=== PATIENT | female | born 1960 | race Caucasian/White ===

== ENCOUNTER 2017-05-12 12:44 | Emergency (ER) | payer MEDICAID ==
[~2017-05-12] VITALS: Ht 165.1 cm; Wt 78.0 kg
[2017-05-12 13:05] VITALS: BP 125/83
--- NOTE | 2017-05-12 13:50 | NUR ---
Patient ambulated to bed 4. RN evaluating patient at bedside.
--- NOTE | 2017-05-12 13:55 | NUR ---
57F BIB FAMILY C/O LEFT EYE SWELLING/PAIN X YESTERDAY. PT STATES NO TRAUMA OR INJURY TO EYE AT THIS TIME. PAIN 9/10 BILATERAL EYE ITCHY/BURNING NON-RADIATING. AAOX4, PERRLA, BREATHING EVEN AND UNLABORED. ERMD NOTIFIED OF PATIENT STATUS.
--- NOTE | 2017-05-12 14:00 | NUR ---
Dr. Echeverria evaluating patient at bedside.
--- NOTE | 2017-05-12 14:21 | NUR ---
Patient discharged with v/s stable. Written and verbal after care instructions given and explained. Patient alert, oriented and verbalized understanding of instructions. Ambulatory with steady gait. All questions addressed prior to discharge. ID band removed. Patient advised to follow up with PMD. Rx of AUGMENTIN 500MG AND ATARAX 25MG TABLET given. Patient educated on indication of medication including possible reaction and side effects. Opportunity to ask questions provided and answered.
[2017-05-12 14:22] VITALS: BP 127/81
== END 2017-05-12 14:21 | disposition home or self-care (01) ==
LOC: MED 12:44
DX: L03.213 Periorbital cellulitis (principal); R03.0 Elevated blood-pressure reading, without diagnosis of hypertension; Z91.013 Allergy to seafood
CPT/HCPCS: 99283

== ENCOUNTER 2017-11-24 11:12 | Emergency (ER) | payer MEDICAID ==
[~2017-11-24] VITALS: Ht 172.7 cm; Wt 81.6 kg
[2017-11-24 11:16] VITALS: BP 154/94
--- NOTE | 2017-11-24 11:29 | NUR ---
57 YO F BIB FAMILY W/ C/O DIZZINESS/HAND CRAMPING X TODAY. NEURO ASSESSMENT APPROPRIATE, NO S/S OF DEFICIT AT THIS TIME. HEART RATE EVEN, PULSE 85, O2 SAT 99%, RESPIRATIONS 23. PT HOOKED UP TO MONITOR UPON ARRIVAL. PT A&O X 4. GCS 15. CMS INTACT. RESPIRATIONS EVEN AND UNLABORED, BUT TACHYPNIC. LUNG SOUNDS BILATERALLY CLEAR. ABD SOFT, NON-TENDER AT THIS TIME. DENIES N/V/D. PT SPEAKS CLEARLY AT THIS TIME. SON AND AT BEDSIDE. ER MD PRIETO NOTIFIED OF PT STATUS. PT NEEDS MET. SAFETY PRECAUTIONS IN PLACE. WILL CONTINUE TO MONITOR.
[2017-11-24] MEDS ORDERED: MECLIZINE 25 MG TAB PO ONE (11:35)
--- NOTE | 2017-11-24 11:50 | NUR ---
Patient reports she "feeling better and less dizzy". Pt is aox4. RR are even and unlabored. No acute distress.
[2017-11-24 12:17] VITALS: BP 134/86
--- NOTE | 2017-11-24 12:17 | NUR ---
Patient discharged with v/s stable. Written and verbal after care instructions given and explained. Patient alert, oriented and verbalized understanding of instructions. Ambulatory with steady gait. All questions addressed prior to discharge. ID band removed. Patient advised to follow up with PMD. Rx of Zofran and Meclizine given. Patient educated on indication of medication including possible reaction and side effects. Opportunity to ask questions provided and answered.
== END 2017-11-24 12:17 | disposition home or self-care (01) ==
LOC: MED 11:12
DX: R42 Dizziness and giddiness (principal); R41.9 Unspecified symptoms and signs involving cognitive functions and awareness; F17.210 Nicotine dependence, cigarettes, uncomplicated; Z91.013 Allergy to seafood
CPT/HCPCS: 99283; J8597

== ENCOUNTER 2018-07-14 13:11 | Emergency (ER) | payer MEDICAID, OTHER ==
[~2018-07-14] VITALS: Ht 165.1 cm; Wt 74.4 kg
--- NOTE | 2018-07-14 13:23 | NUR ---
PT AMBULATED TO ER BED 04
[2018-07-14 13:26] VITALS: BP 136/78
--- NOTE | 2018-07-14 13:30 | NUR ---
HANDED URINE CUP TO PT FOR SAMPLE
--- NOTE | 2018-07-14 13:56 | NUR ---
58/F [place] SPEAKING , SON INTERPRETING. PT C/O LOWER ABDOMINAL PAIN WITH DYSURIA AND FATIGUE X 4 DAYS. HAS BEEN SEEN BY PMD BUT PT STATES ISSUES HAVE NOT RESOLVED AND LEFT EAR PAIN X 2 WEEKS. . HX--THYROID, HTN, GOUT, BLADDER, GERD. MED: SYNTHROID, NORVASC, INDOMETHACIN, PRAVASTATIN, PRILOSEC, BRINTELLIX, VITAMIN D2, BACTRIM. PATIENT STATES PAIN OF 8/10 AT THIS TIME; VSS; PATIENT POSITIONED FOR COMFORT; HOB ELEVATED; BEDRAILS UP X2; BED DOWN. ER MD MADE AWARE OF PT STATUS.
--- NOTE | 2018-07-14 13:56 | NUR ---
Note undone in EDM - 07/14/18 at 1403 by [email or web address] 58/F LAO SPEAKING , SON INTERPRETING. PT C/O LOWER ABDOMINAL PAIN WITH DYSURIA AND FATIGUE X "WEEKS". HAS BEEN SEEN BY PMD BUT PT STATES ISSUES HAVE NOT RESOLVED AND LEFT EAR PAIN. HX--THYROID, HTN, GOUT, BLADDER, GERD. MED: SYNTHROID, NORVASC, INDOMETHACIN, PRAVASTATIN, PRILOSEC, BRINTELLIX, VITAMIN D2, BACTRIM. PATIENT STATES PAIN OF 8/10 AT THIS TIME; VSS; PATIENT POSITIONED FOR COMFORT; HOB ELEVATED; BEDRAILS UP X2; BED DOWN. ER MD MADE AWARE OF PT STATUS.
[2018-07-14] MEDS ORDERED: NACL 0.9% 1,000 ML IV SCH (14:35)
[2018-07-14] MEDS ORDERED: KETOROLAC 30 MG/ML VIAL IVP ONE (14:35)
[2018-07-14 15:04] LABS: HEMATOCRIT 46.9 % (36-48); HEMOGLOBIN 15.8 g/dL (12.0-16.0); LYMPHOCYTES # (AUTO) 3.5 K/uL (2.5-16.5); LYMPHOCYTES % (AUTO) 33.4 % (20.5-51.1); MEAN CORPUSCULAR HEMOGLOBIN 30 pg (27-31); MEAN CORPUSCULAR HGB CONC 34 g/dL (33-37); MEAN CORPUSCULAR VOLUME 90.2 fL (80-94); MONOCYTES # (AUTO) 3.5 K/uL (0.8-1.0); MONOCYTES % (AUTO) 33.3 % (1.7-9.3); NEUTROPHILS # (AUTO) 3.5 K/uL (1.8-7.7); NEUTROPHILS % (AUTO) 33.3 % (42.2-75.2); PLATELET COUNT (AUTO) 279 K/uL (140-450); RED CELL DISTRIBUTION WIDTH 13.3 % (11.6-13.7); WHITE BLOOD COUNT (AUTO) 10.4 K/uL (4.8-10.8)
[2018-07-14 15:06] LABS: APPEARANCE,URINE CLEAR (CLEAR); BILIRUBIN,URINE NEGATIVE (NEGATIVE); BLOOD, URINE TRACE-I (NEGATIVE); COLOR,URINE YELLOW (YELLOW); LEUKOCYTE ESTERASE ,URINE NEGATIVE (NEGATIVE); NITRITE, URINE NEGATIVE (NEGATIVE); PH,URINE 6.5 (5.0-9.0); UGLUCOSE NEGATIVE (NEGATIVE)
[2018-07-14 15:07] LABS: RBC,URINE 0-5 (RARE) /HPF (0-5); WBC,URINE NONE SEEN /HPF (0-5)
--- NOTE | 2018-07-14 15:17 | NUR ---
PT TAKEN TO CT VIA [facility], ACCOMPANIED BY VESSEL ENGINEER.
[2018-07-14 15:23] LABS: ALBUMIN 3.8 g/dL (3.4-5.0); ANION GAP 12.5 (8-16); CARBON DIOXIDE 27.4 mmol/L (21-32); CREATININE 0.7 mg/dL (0.6-1.3); POTASSIUM 3.9 mmol/L (3.5-5.1); TOTAL BILIRUBIN 0.3 mg/dL (0.0-1.0)
--- NOTE | 2018-07-14 15:28 | NUR ---
PT RETURNED FROM CT VIA [facility], ACCOMPANIED BY BEAM MACHINE OPERATOR.
[2018-07-14 16:32] VITALS: BP 111/67
--- NOTE | 2018-07-14 16:32 | NUR ---
Patient discharged with v/s stable. Written and verbal after care instructions given and explained. Patient alert, oriented and verbalized understanding of instructions. Ambulatory with steady gait. All questions addressed prior to discharge. ID band removed. Patient advised to follow up with PMD. Rx of Jeddo and Motrin given. Patient educated on indication of medication including possible reaction and side effects. Opportunity to ask questions provided and answered.
== END 2018-07-14 16:32 | disposition home or self-care (01) ==
LOC: MED 13:11
DX: R10.30 Lower abdominal pain, unspecified (principal); H92.02 Otalgia, left ear; K21.9 Gastro-esophageal reflux disease without esophagitis; I10 Essential (primary) hypertension; E03.9 Hypothyroidism, unspecified; F17.200 Nicotine dependence, unspecified, uncomplicated
CPT/HCPCS: 36415; 74176; 80053; 81001; 81025; 83690; 85025; 96374; 99284; J1885; J7030

== ENCOUNTER 2018-12-05 15:22 | Emergency (ER) | payer MEDICAID, OTHER ==
[~2018-12-05] VITALS: Ht 165.1 cm; Wt 74.8 kg
[2018-12-05 15:31] VITALS: BP 123/72
--- NOTE | 2018-12-05 16:08 | NUR ---
C/O SYNCOPE. PER DAUGHTER PT HAS BEEN DIZZY X1 MONTH AND HAS PAIN IN LT LEG AND LOWER BACK X 1MONTH. DENIES N/V/D; SKIN IS PINK/WARM/DRY; AAOX4 ,LUNGS CLEAR BL; HR EVEN AND REGULAR; PT DENIES ANY FEVER, CP, SOB, OR COUGH AT THIS TIME; PATIENT STATES PAIN OF 9/10 AT THIS TIME; VSS; PATIENT POSITIONED FOR COMFORT; HOB ELEVATED; BEDRAILS UP X2; BED DOWN. ER MD MADE AWARE OF PT STATUS. AT BEDSIDE.
[2018-12-05] MEDS ORDERED: MECLIZINE 25 MG TAB PO ONE (16:55)
[2018-12-05] MEDS ORDERED: ONDANSETRON 4 MG ODT PO ONE (16:55)
[2018-12-05 17:18] LABS: BASOPHILS % (AUTO) 0.5 % (0.0-2.0); EOSINOPHILS # (AUTO) 0.3 K/uL (0-0.4); EOSINOPHILS % (AUTO) 3.3 % (0.0-4.0); HEMATOCRIT 43.2 % (36-48); HEMOGLOBIN 14.9 g/dL (12.0-16.0); LYMPHOCYTES # (AUTO) 3.4 K/uL (2.5-16.5); LYMPHOCYTES % (AUTO) 36.2 % (20.5-51.1); MEAN CORPUSCULAR HEMOGLOBIN 32 pg (27-31); MEAN CORPUSCULAR HGB CONC 34 g/dL (33-37); MEAN CORPUSCULAR VOLUME 91.9 fL (80-94); MONOCYTES # (AUTO) 0.6 K/uL (0.8-1.0); MONOCYTES % (AUTO) 6.3 % (1.7-9.3); NEUTROPHILS % (AUTO) 53.7 % (42.2-75.2); PLATELET COUNT (AUTO) 303 K/uL (140-450); WHITE BLOOD COUNT (AUTO) 9.3 K/uL (4.8-10.8)
[2018-12-05 17:30] LABS: ANION GAP 12.4 (8-16); CARBON DIOXIDE 27.7 mmol/L (21-32); CREATININE 0.6 mg/dL (0.6-1.3); POTASSIUM 4.1 mmol/L (3.5-5.1)
[2018-12-05 17:34] LABS: ALBUMIN 3.6 g/dL (3.4-5.0); TOTAL BILIRUBIN 0.2 mg/dL (0.0-1.0)
[2018-12-05 17:39] LABS: PROTHROMBIN TIME 9.5 secs (10.8-13.4)
--- NOTE | 2018-12-05 18:00 | NUR ---
PT STAYING IN BED, NO SOB, STATED DIZZINESS GETING BETTER.
[2018-12-05 18:50] VITALS: BP 118/75
--- NOTE | 2018-12-05 18:50 | NUR ---
Patient discharged with v/s stable. Written and verbal after care instructions given and explained. Patient alert, oriented and verbalized understanding of instructions. Ambulatory with steady gait. All questions addressed prior to discharge. ID band removed. Patient advised to follow up with PMD. Rx of MECLIZINE HYDROCHLORIDE AND ZOFRAN given. Patient educated on indication of medication including possible reaction and side effects. Opportunity to ask questions provided and answered.
[2018-12-05 19:09] LABS: APPEARANCE,URINE HAZY (CLEAR); BILIRUBIN,URINE 1+ (NEGATIVE); BLOOD, URINE NEGATIVE (NEGATIVE); COLOR,URINE DARK YELLOW (YELLOW); LEUKOCYTE ESTERASE ,URINE NEGATIVE (NEGATIVE); NITRITE, URINE NEGATIVE (NEGATIVE); UGLUCOSE NEGATIVE (NEGATIVE)
== END 2018-12-05 18:50 | disposition home or self-care (01) ==
LOC: MED 15:22
DX: R55 Syncope and collapse (principal); I10 Essential (primary) hypertension; K21.9 Gastro-esophageal reflux disease without esophagitis; E03.9 Hypothyroidism, unspecified; E78.5 Hyperlipidemia, unspecified; Z91.013 Allergy to seafood
CPT/HCPCS: 36415; 70450; 71045; 80053; 81003; 82948; 84484; 85025; 85610; 85730; 93005; 99284; J8597; Q0092; Q0162

== ENCOUNTER 2019-09-02 10:11 | Emergency (ER) | payer MEDICAID ==
[~2019-09-02] VITALS: Ht 165.1 cm; Wt 68.0 kg
[2019-09-02 10:28] VITALS: BP 122/80
--- NOTE | 2019-09-02 10:41 | NUR ---
WAIT AT LOBBY
--- NOTE | 2019-09-02 13:12 | NUR ---
AMBULATORY TO FAST TRACK CHAIR B
--- NOTE | 2019-09-02 13:28 | NUR ---
DONALDO WALKED OVER TO LAB AND ASKED THEM TO START U/A
[2019-09-02 13:33] LABS: APPEARANCE,URINE SL CLOUDY (CLEAR); BILIRUBIN,URINE NEGATIVE (NEGATIVE); BLOOD, URINE 3+ (NEGATIVE); COLOR,URINE YELLOW (YELLOW); LEUKOCYTE ESTERASE ,URINE 1+ (NEGATIVE); NITRITE, URINE NEGATIVE (NEGATIVE); UGLUCOSE NEGATIVE (NEGATIVE)
[2019-09-02 13:38] LABS: RBC,URINE 11-20 (MOD) /HPF (0-5); WBC,URINE 16-25 (MOD) /HPF (0-5)
--- NOTE | 2019-09-02 13:47 | NUR ---
C/O HEMATURIA X YESTERDAY. DENIES DYSURIA OR FREQUENCY DENIES AB PAIN, N/V/D, FEVER, OR CHILLS PT ALERT AND AWAKE, VS STABLE UPON TRIAGE MED HX: HTN, GERD,HYPOTHYROID, HIGH CHOLESTEROL, HYPERLIPIDEMIA
[2019-09-02 13:58] VITALS: BP 130/73
--- NOTE | 2019-09-02 13:58 | NUR ---
Patient discharged with v/s stable. Written and verbal after care instructions given and explained REGARDING UTI. Patient alert, oriented and verbalized understanding of instructions. Ambulatory with steady gait. All questions addressed prior to discharge. ID band removed. Patient advised to follow up with PMD. Rx of NITROFURANTOIN given. Patient educated on indication of medication including possible reaction and side effects. Opportunity to ask questions provided and answered. TRANSLATED
== END 2019-09-02 13:58 | disposition home or self-care (01) ==
LOC: MED 10:11
DX: N39.0 Urinary tract infection, site not specified (principal); I10 Essential (primary) hypertension; E78.5 Hyperlipidemia, unspecified; K21.9 Gastro-esophageal reflux disease without esophagitis; E03.9 Hypothyroidism, unspecified; F17.210 Nicotine dependence, cigarettes, uncomplicated; Z91.013 Allergy to seafood
CPT/HCPCS: 81001; 87086; 99283

== ENCOUNTER 2021-08-12 10:43 | Emergency (ER) | payer MEDICAID ==
[~2021-08-12] VITALS: Ht 162.6 cm; Wt 80.7 kg
[2021-08-12 11:05] VITALS: BP 131/73
--- NOTE | 2021-08-12 11:11 | NUR ---
KRISTINA. HANDED ON URINE CUP.
[2021-08-12] MEDS ORDERED: HYDROcodone/APAP 5/325 MG 1 TAB TAB PO ONE (11:55)
[2021-08-12 12:40] LABS: EOSINOPHILS # (AUTO) 0.2 K/uL (0-0.4); MEAN CORPUSCULAR HEMOGLOBIN 30 pg (27-31)
[2021-08-12 12:56] LABS: ALBUMIN 3.3 g/dL (3.4-5.0); ANION GAP 14.1 (8-16); CARBON DIOXIDE 25.5 mmol/L (21-32); CREATININE 0.7 mg/dL (0.6-1.3); POTASSIUM 3.6 mmol/L (3.5-5.1); TOTAL BILIRUBIN 0.4 mg/dL (0.0-1.0)
[2021-08-12 13:42] LABS: APPEARANCE,URINE SL CLOUDY (CLEAR); BILIRUBIN,URINE NEGATIVE (NEGATIVE); BLOOD, URINE 3+ (NEGATIVE); COLOR,URINE DARK YELLOW (YELLOW); LEUKOCYTE ESTERASE ,URINE 3+ (NEGATIVE); NITRITE, URINE POSITIVE (NEGATIVE); UGLUCOSE NEGATIVE (NEGATIVE)
[2021-08-12 14:00] LABS: RBC,URINE 80-100 /HPF (0-5); WBC,URINE 60-80 /HPF (0-5)
[2021-08-12] MEDS ORDERED: PYR100 PO (14:13)
[2021-08-12] MEDS ORDERED: SULF-59 PO (14:13)
[2021-08-12] MEDS ORDERED: IBUP-2213 PO (14:13)
[2021-08-12] MEDS ORDERED: ACET-8386 PO (14:13)
[2021-08-12 14:40] LABS: BASOPHILS % (AUTO) 0.2 % (0.0-2.0); EOSINOPHILS % (AUTO) 1.5 % (0.0-4.0); HEMATOCRIT 40.3 % (36-48); HEMOGLOBIN 13.8 g/dL (12.0-16.0); LYMPHOCYTES # (AUTO) 2.9 K/uL (2.5-16.5); LYMPHOCYTES % (AUTO) 21.7 % (20.5-51.1); MEAN CORPUSCULAR HGB CONC 34 g/dL (33-37); MEAN CORPUSCULAR VOLUME 87.3 fL (80-94); MONOCYTES % (AUTO) 7.9 % (1.7-9.3); NEUTROPHILS % (AUTO) 68.7 % (42.2-75.2); PLATELET COUNT (AUTO) 416 K/uL (140-450); RED BLOOD CELL COUNT(AUTO) 4.61 MIL/uL (4.20-5.40); WHITE BLOOD COUNT (AUTO) 13.2 K/uL (4.8-10.8)
[2021-08-12] MEDS ORDERED: HYDROcodone/APAP 5/325 MG 1 TAB TAB ONE (14:43)
[2021-08-12 14:50] VITALS: BP 123/83
--- NOTE | 2021-08-12 14:50 | NUR ---
Patient discharged with v/s stable. Written and verbal after care instructions given and explained. Patient alert, oriented and verbalized understanding of instructions. Ambulatory with steady gait. All questions addressed prior to discharge. ID band removed. Patient advised to follow up with PMD. Rx of IBUPROFEN, PYRIDIUM, AND BACTRIM given. Patient educated on indication of medication including possible reaction and side effects. Opportunity to ask questions provided and answered.
--- NOTE | 2021-08-12 14:51 | NUR ---
NO COMPLETE DONE DUE TO NO NURSING INTERVENTIONS GIVEN
== END 2021-08-12 14:50 | disposition home or self-care (01) ==
LOC: MED 10:43
DX: N12 Tubulo-interstitial nephritis, not specified as acute or chronic (principal); R03.0 Elevated blood-pressure reading, without diagnosis of hypertension; R05.9 Cough, unspecified; K21.9 Gastro-esophageal reflux disease without esophagitis; R07.9 Chest pain, unspecified; Z91.013 Allergy to seafood
CPT/HCPCS: 36415; 80053; 81001; 83690; 85025; 87086; 99284